=== PATIENT | female | born 1950 | race Caucasian/White ===

== ENCOUNTER → 2017-08-22 | Outpatient (CLI) | payer BC ==
[~2017-08-22] MED LIST: BLOOD PRESSURE MED; ULTRAM50 MG PO; ZOFRAN 4MG T4 MG/TAB PO; [UNRECOGNIZED DRUG - REMARK]
== END ==
LOC: MC.RAD 08:16
DX: Z12.31 Encounter for screening mammogram for malignant neoplasm of breast (principal)

== ENCOUNTER → 2017-09-01 | Outpatient (CLI) | payer BC | LOC: ZCOL.LAB 15:15 | DX: Z11.2 Encounter for screening for other bacterial diseases (principal) ==

== ENCOUNTER → 2019-09-16 | Outpatient (CLI) | payer BC, MEDICARE, OTHER | LOC: MC.RAD 13:15 | DX: Z12.31 Encounter for screening mammogram for malignant neoplasm of breast (principal) ==

== ENCOUNTER → 2021-08-05 | Outpatient (CLI) | payer BC | LOC: MC.RAD 09:13 | DX: Z12.31 Encounter for screening mammogram for malignant neoplasm of breast (principal) ==

== ENCOUNTER 2022-01-22 13:49 | Emergency (ER) | payer BC, MEDICARE ==
[~2022-01-22] VITALS: Ht 165.1 cm; Wt 109.1 kg
[2022-01-22 14:04] VITALS: TEMP 98
[2022-01-22 14:47] LABS: BASO % 0.3 % (0.0-2.0); EOS # 0.3 K/mm3 (0.0-0.7); EOS % 3.8 % (0.0-4.0); GRAN # 6.9 K/mm3 (1.4-6.5); GRAN % 79.3 % (42.2-75.2); HEMATOCRIT 39.8 % (37.0-47.0); HEMOGLOBIN 13.2 g/dl (12.5-16.0); LYMPH % 11.3 % (20.0-51.0); MEAN CELL VOLUME 91 fl (80.0-100.0); MEAN CORPUSCULAR HEMOGLOBIN 30 pg (27-31); MEAN CORPUSCULAR HGB CONC 33 g/dl (33.0-37.0); MEAN PLATELET VOLUME 11.3 fl (7.4-10.4); MONO # 0.4 K/mm3 (0.1-0.6); MONO % 5.1 % (1.7-9.3); PLATELET COUNT 205 K/mm3 (130-400); RED BLOOD COUNT 4.36 M/mm3 (4.10-5.30); REDCELL DISTRIBUTION WIDTH-CV 13.1 % (11.5-14.5)
[2022-01-22 15:03] LABS: ALBUMIN 3.8 gm/dL (3.4-4.8); BILIRUBIN,TOTAL 0.5 mg/dL (0.2-1.2); CALCIUM 8.6 mg/dL (8.4-10.2); CREATININE, serum 0.66 mg/dL (0.57-1.11); POTASSIUM 3.9 mmol/L (3.5-4.5); TOTAL PROTEIN 6.7 gm/dL (6.2-8.1)
[2022-01-22 16:17] LABS: COLLECTION METHOD CLEAN CATCH
[2022-01-22 16:29] LABS: PH 6 (5-8); SQUAMOUS EPITHELIAL 0-2 /hpf (0-10); URINE APPEARANCE Clear (CLEAR/HAZY); URINE BACTERIA None Seen /hpf (NONE SEEN); URINE BILIRUBIN Negative (NEGATIVE); URINE BLOOD Negative (NEGATIVE); URINE COLOR Yellow (YELLOW); URINE GLUCOSE Negative (NEGATIVE); URINE KETONE Negative (NEGATIVE); URINE LEUKOCYTE ESTERASE Negative (NEGATIVE); URINE NITRATE Negative (NEGATIVE); URINE PROTEIN(semi-quant) Negative (NEGATIVE); URINE RBC 0-2 /hpf (0-2); URINE UROBILINOGEN Negative (NEGATIVE)
[2022-01-22 17:44] VITALS: BP 147/97; PULSE 76
[2022-01-24] MEDS ORDERED: NORVASC 10MG10 MG PO (09:26)
[2022-01-24] MEDS ORDERED: ANORO IH (09:26)
[2022-01-24] MEDS ORDERED: NUVIGIL150 MG PO (09:27)
[2022-01-24] MEDS ORDERED: COREG 6.256.25 MG/TA PO (09:27)
[2022-01-24] MEDS ORDERED: PRILOSEC 20MG20 MG PO (09:27)
[2022-01-24] MEDS ORDERED: K-TAB20 PO (09:28)
[2022-01-24] MEDS ORDERED: BENICAR40 MG PO (09:28)
[2022-01-24] MEDS ORDERED: PRAVACHOL 40MG40 MG PO (09:28)
[2022-01-24] MEDS ORDERED: ZOLOFT 50MG50 MG PO (09:29)
== END 2022-01-22 17:45 | disposition home or self-care (01) ==
LOC: COL.ER 13:49
PROVIDERS: Nurse Practitioner Family
DX: N39.0 Urinary tract infection, site not specified (principal); E66.9 Obesity, unspecified; Z87.448 Personal history of other diseases of urinary system
CPT/HCPCS: J1335; J2405; J2543; J7040

== ENCOUNTER 2022-01-31 09:00 | Outpatient (RCR) | payer BC, MEDICARE ==
[2022-01-23 09:55] VITALS: BP 129/67; PULSE 74; TEMP 98.2
[2022-01-24 09:20] VITALS: BP 118/76; PULSE 69; TEMP 98.4
[2022-01-25 09:10] VITALS: BP 124/79; PULSE 68; TEMP 98.3
[2022-01-26 09:29] VITALS: BP 141/74; PULSE 75; TEMP 98.8
[2022-01-27 09:15] VITALS: BP 137/63; PULSE 71; TEMP 98.4
[2022-01-28 09:26] VITALS: BP 160/76; PULSE 72; TEMP 98.3
[2022-01-29 09:57] VITALS: BP 161/78; PULSE 76; TEMP 98.3
--- NOTE | 2022-01-29 10:18 | NUR ---
1st attempt of IV start by myself unsuccessful. 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 She got a 22g into the [facility] on the 2nd attempt. After infusing for approximately 5 minutes, patient c/o pain to the site. I immediately stopped the infusion, ICU charge was able to start a 22g in the 1st attempt. IV to [facility] DC,d, no redness, edema present.
--- NOTE | 2022-01-29 10:50 | NUR ---
infusion completed at 1035, IV dc'd to . Escorted patient to ER exit.
[2022-01-30 10:24] VITALS: BP 138/78; PULSE 77; TEMP 98.7
[~2022-01-31] VITALS: Ht 165.1 cm; Wt 109.0 kg
[~2022-01-31 09:00] MED LIST changes: +ANORO IH; +BENICAR40 MG PO; +COREG 6.256.25 MG/TA PO; +K-TAB20 PO; +NORVASC 10MG10 MG PO; +NUVIGIL150 MG PO; +PRAVACHOL 40MG40 MG PO; +PRILOSEC 20MG20 MG PO; +ZOLOFT 50MG50 MG PO
[2022-01-31 09:27] VITALS: BP 120/78; PULSE 80; TEMP 98
== END 2022-01-31 10:00 | disposition home or self-care (01) ==
LOC: EUO 09:00
DX: Z51.81 Encounter for therapeutic drug level monitoring (principal)
CPT/HCPCS: J1335